=== PATIENT | female | born 1965 | race Caucasian/White ===

== ENCOUNTER 2021-09-23 23:01 | Emergency (ER) | payer MEDICARE ==
[~2021-09-23] VITALS: Ht 162.6 cm; Wt 81.2 kg
[~2021-09-23 23:01] MED LIST: Percocet 5-3251 EACH PO; Vibramycin100 MG PO
[2021-09-23 23:48] LABS: BASOPHILS ABSOLUTE AUTO 0.04 K/mm3 (0.00-0.23); BASOPHILS PERCENT AUTO 1 % (0-2); EOSINOPHILS ABSOLUTE AUTO 0.09 K/mm3 (0.00-0.68); EOSINOPHILS PERCENT AUTO 1 % (0-6); Hemoglobin 13.3 g/dL (11.5-16.0); IMMATURE GRAN ABSOLUTE AUTO 0.06 K/mm3 (0.00-0.10); IMMATURE GRAN PERCENT AUTO 1 % (0-1); LYMPHOCYTES ABSOLUTE AUTO 2.05 K/mm3 (0.84-5.20); LYMPHOCYTES PERCENT AUTO 27 % (21-46); MONOCYTES ABSOLUTE AUTO 0.61 K/mm3 (0.16-1.47); MONOCYTES PERCENT AUTO 8 % (4-13); Mean Corpuscular HGB 32.4 pg (26.0-34.0); Mean Corpuscular HGB Conc 34.1 g/dL (31.5-36.5); Mean Corpuscular Volume 95 fL (80-100); Mean Platelet Volume 10.1 fL (9.1-12.4); NEUTROPHILS PERCENT AUTO 62 % (41-73); Platelet Count 286 K/mm3 (150-400); RDW Coefficient Variation 12.3 % (11.7-14.2); RDW Standard Deviation 43.1 fL (35.1-46.3); Red Blood Cell Count 4.11 M/mm3 (3.80-5.20); White Blood Cell Count 7.55 K/mm3 (4.00-11.30)
[2021-09-23] MEDS ORDERED: VENL25 (23:58)
[2021-09-23] MEDS ORDERED: PROP10 (23:58)
[2021-09-23] MEDS ORDERED: TOPI100 (23:59)
[2021-09-24 00:05] LABS: Albumin, Blood 2.8 g/dL (3.4-5.0); Albumin/Globulin Ratio 0.5 (0.8-1.8); Bilirubin, Total 0.4 mg/dL (0.1-1.0); Bun/Creatinine Ratio 9.8 (12.0-20.0); Calcium, Blood 9.8 mg/dL (8.5-10.1); Creatinine, Blood 1.12 mg/dL (0.40-1.00); Globulin, Blood 5.3 g/dL (2.2-4.0); Potassium, Blood 3.5 mmol/L (3.5-5.5); Total Protein, Blood 8.1 g/dL (6.4-8.2)
[2021-09-24 02:50] LABS: Influenza A, PCR NEGATIVE (NEGATIVE); Influenza B, PCR NEGATIVE (NEGATIVE); Resp Syncytial Virus, PCR NEGATIVE (NEGATIVE); SARS-Cov-2 (COVID-19) PCR, MMC NEGATIVE (NEGATIVE)
[2021-09-24] MEDS ORDERED: IPRAT-ALBUT 0.5-3 ML INH (03:20)
[2021-09-24] MEDS ORDERED: ALBU90OI INH (03:20)
[2021-09-24] MEDS ORDERED: PRED20 PO (03:20)
[2021-09-24] MEDS ORDERED: DOXY100 PO (03:20)
== END 2021-09-24 04:52 | disposition home or self-care (01) ==
LOC: ER 23:01
PROVIDERS: Student in an Organized Health Care Education/Training Program
DX: J44.1 Chronic obstructive pulmonary disease with (acute) exacerbation (principal); B34.9 Viral infection, unspecified; Z88.8 Allergy status to other drugs, medicaments and biological substances; Z88.0 Allergy status to penicillin; Z88.2 Allergy status to sulfonamides; Z91.012 Allergy to eggs; Z79.899 Other long term (current) drug therapy; I48.91 Unspecified atrial fibrillation; G20 Parkinson's disease; Z87.891 Personal history of nicotine dependence
CPT/HCPCS: 0241U; 36415; 71045; 80053; 84484; 85025; 93005; 93010; 94640; 94664; A9270; J1885; J2405; J7030; J7512

== ENCOUNTER → 2022-06-03 | Outpatient (CLI) | payer MEDICARE ==
[~2022-06-03] MED LIST changes: +ALBU90OI INH; +DOXY100 PO; +IPRAT-ALBUT 0.5-3 ML INH; +PRED20 PO; +PROP10; +TOPI100; +VENL25
[2022-06-06 15:33] LABS: Protein, Urine Quantitative 11.9 mg/dL (0.0-11.9); Sodium, Urine 87 mmol/L (20-110); Urine Potassium 14 mmol/L (12.0-75.0)
[2022-06-06 15:39] LABS: Microalbumin, Urine Quant. <5.000 mg/L (0.000-20.000); Uric Acid, Urine 26.7 mg/dL (7.5-49.5)
[2022-06-06 19:00] LABS: Phosphorus, Urine 31.9 mg/dL (20.0-60.0)
[2022-06-06 19:02] LABS: Calcium, Urine <5.0 mg/dL (< 17.5); Calcium, Urine Calculation Unable to Calculate mg/24hrs (42.0-353.0)
== END | disposition home or self-care (01) ==
LOC: LAB SHORT 19:00
PROVIDERS: Internal Medicine Nephrology
DX: N18.30 Chronic kidney disease, stage 3 unspecified (principal); D75.1 Secondary polycythemia; N25.81 Secondary hyperparathyroidism of renal origin; E55.9 Vitamin D deficiency, unspecified; E29.1 Testicular hypofunction; N20.0 Calculus of kidney; R76.9 Abnormal immunological finding in serum, unspecified; R94.6 Abnormal results of thyroid function studies; R94.5 Abnormal results of liver function studies
CPT/HCPCS: 81050; 82043; 82340; 82570; 84105; 84133; 84156; 84300; 84560